=== PATIENT | female | born 1995 | race Caucasian/White ===

== ENCOUNTER 2018-10-16 12:12 | Day surgery (SDC) | payer BC ==
[~2018-10-16] VITALS: Ht 175.3 cm; Wt 56.7 kg
--- NOTE | 2018-10-16 15:39 | NUR ---
10/16/18 1539 Lin Mandel 1533-PATIENT ARRIVED TO PACU ON 2L NC AWAKE DROWSY DENIES PAIN OR ABDOMEN. ABDOMEN SOFT. ENCOURAGED TO PASS GAS. RR EVEN 1538-ON RA 100% CO2 37. AWAKE, ORIENTED X3.
--- NOTE | 2018-10-18 10:33 | OR ---
[facility] [address], [place] [address] Signed DATE OF OPERATION: 10/16/2018 SURGEON: Pa Hassan MD PREOPERATIVE DIAGNOSES: 1. History of C difficile infection in July 2018, treated and test of cure negative. 2. Persistent diarrhea and occasional blood per rectum. POSTOPERATIVE DIAGNOSIS: Normal-appearing colon and ilium. PROCEDURE PERFORMED: Total colonoscopy to cecum with intubation of ileum and multiple biopsies. ANESTHESIA: Intravenous sedation, fentanyl 200 mcg and Versed 6 mg. 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 The patient has had an episode of C difficile infection while away at [facility]. She was treated with antibiotics and a test of cure was obtained showing no sign of persistent or recurrent disease. She still has issues of diarrhea and occasional blood per rectum, however. She has been evaluated by the gastroenterology group elsewhere and lab studies including celiac panel were found to be normal or negative, and a fecal calprotectin is also normal. She is here to undergo colonoscopy to assess for cause of her persistent diarrheal problem, specifically inflammatory bowel disease or other occult including lymphocytic colitis and so on. She understands the risks of bleeding, infection, and perforation related to colonoscopy and wished to proceed. FINDINGS: The prep was excellent. Complete colonoscopy was undertaken of the cecum. Intubation of the ileum was accomplished as well. The ileum had typical lymphoid aggregates, but no sign of inflammatory bowel disease. The colon itself was entirely normal as well with no sign of diverticula, polyps, colitis, or cancer. Retroflex view was normal also. DESCRIPTION OF PROCEDURE: The patient was brought to the endoscopy suite and placed in lateral decubitus position, given intravenous sedation to the point of slurred speech and nystagmus. Digital rectal Electronically Signed By: PA HASSAN MD 10/18/18 1033 PATIENT NAME: DARCIE HERNANDEZ OPERATIVE REPORT DATE OF : [birth year] REPORT #: [id number] PHYSICIAN: PA HASSAN MD PCP: OTHER PCP REPORT IS CONFIDENTIAL AND NOT TO BE RELEASED WITHOUT AUTHORIZATION [facility] [address], [place] [address] Signed examination was normal. An Olympus video colonoscope was passed in the rectum and manipulated throughout the colon ultimately intubating the cecum. Various manipulations, the very subtle ileocecal valve was ultimately intubated and the scope passed approximately 6 to 8 cm. Lymphoid aggregates were noted, but no sign of inflammatory change, ulcerations, or stricture. Biopsies were obtained. The scope was withdrawn and biopsies then taken of the cecum, which appeared normal. Careful withdrawal of scope allowed for random biopsies throughout the colon including right transverse, left sigmoid, and rectal biopsies. Retroflexed view was normal as well. The scope was removed and the patient was taken to recovery room in good condition. CONCLUDING DIAGNOSIS: No overt signs of colitis or other abnormality at this time. The possibility of lymphocytic colitis or collagenous colitis must be considered as well, however. Biopsies are pending. PLAN: We will offer to her a low-FODMAP diet as a plan to ameliorate her symptoms. On the high probability, this represents a postinfectious irritable bowel syndrome. The natural history of such an ailment is variable and we will review this with her in the future. Pa Hassan MD JM/MODL /[id number] cc: Alan Wisdom MD [address] [facility] [place] Duong Hernandez MD Electronically Signed By: PA HASSAN MD 10/18/18 1033 PATIENT NAME: DARCIE HERNANDEZ OPERATIVE REPORT DATE OF : [birth year] REPORT #: [id number] PHYSICIAN: PA HASSAN MD PCP: OTHER PCP REPORT IS CONFIDENTIAL AND NOT TO BE RELEASED WITHOUT AUTHORIZATION [facility] [address], [place] [address] Signed Copies: DUONG HERNANDEZ MD ~ Electronically Signed By: PA HASSAN MD 10/18/18 1033 PATIENT NAME: DARCIE HERNANDEZ OPERATIVE REPORT DATE OF : [birth year] REPORT #: [id number] PHYSICIAN: PA HASSAN MD PCP: OTHER PCP REPORT IS CONFIDENTIAL AND NOT TO BE RELEASED WITHOUT AUTHORIZATION
== END 2018-10-16 16:20 | disposition home or self-care (01) ==
LOC: DS 12:12 → OPS 12:12 → DS 13:00 → OPS 13:00
PROVIDERS: Surgery
PROC: 0DBL8ZX Excision of Transverse Colon, Via Natural or Artificial Opening Endoscopic, Diagnostic (ICD-10-PCS; 2018-10-16)
PROC: 0DBN8ZX Excision of Sigmoid Colon, Via Natural or Artificial Opening Endoscopic, Diagnostic (ICD-10-PCS; 2018-10-16)
PROC: 0DBP8ZX Excision of Rectum, Via Natural or Artificial Opening Endoscopic, Diagnostic (ICD-10-PCS; 2018-10-16)
PROC: 0DBB8ZX Excision of Ileum, Via Natural or Artificial Opening Endoscopic, Diagnostic (ICD-10-PCS; 2018-10-16)
PROC: 0DBH8ZX Excision of Cecum, Via Natural or Artificial Opening Endoscopic, Diagnostic (ICD-10-PCS; principal; 2018-10-16 13:00)
DX: K52.9 Noninfective gastroenteritis and colitis, unspecified (principal); K62.89 Other specified diseases of anus and rectum; Z88.0 Allergy status to penicillin
CPT/HCPCS: 99153; G0500; J2250; J3010; J7120